=== PATIENT | male | born 1975 | race Caucasian/White ===

== ENCOUNTER 2023-05-09 10:38 | Emergency (ER) | payer OTHER, SELFPAY ==
[2023-05-09] VITALS (8 sets, daily range): BP systolic 137–165; BP diastolic 100–125; PULSE 72–87; RESP 20; TEMP 36.8; O2SAT 96–98; BMI 29.0
--- NOTE | 2023-05-09 10:51 | ECG_ITS ---
APPROVED REPORT Exam: Resting ECG HR:70 bpm ECG Measurements Heart Rate 70 AXES WY 157 P 46 QRSd 90 QRS 89 QT 396 T 31 QTc 417 Conclusion SINUS RHYTHM NORMAL ECG UNCONFIRMED REPORT Electronically signed by : Herbert Still MD 05/10/2023 17:14:11
--- NOTE | 2023-05-09 11:17 | XR_ITS ---
FINAL REPORT CLINICAL HISTORY: dizzines, and soa FINDINGS: SINGLE-VIEW CHEST The heart size is normal. The mediastinum is normal. The lungs are clear. There is no pneumothorax. IMPRESSION: No acute cardiopulmonary process. Reviewed, Interpreted and Dictated by eKvin Root III, MD Transcribed by Mary Turcios Authenticated and [facility]
--- NOTE | 2023-05-09 11:22 | CT_ITS ---
FINAL REPORT TECHNIQUE: Thin section axial CT with IV contrast supplemented with multiplanar reconstruction under CT angiogram protocol. This study was performed with techniques to keep radiation doses as low as reasonably achievable (ALARA). Individualized dose reduction techniques using automated exposure control or adjustment of mA and/or kV according to the patient''s size were employed. NASCET criteria was utilized during interpretation. CLINICAL HISTORY: Dizziness FINDINGS: Aortic arch: Arch shows no significant narrowing. Great vessel origins are widely patent. Right carotid: No significant stenosis is seen of the cervical common or internal carotid artery. Left carotid: No significant stenosis is seen of the cervical common or internal carotid artery. Vertebral: Left vertebral artery is dominant. No significant stenosis is present. 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 IMPRESSION: No significant stenosis. Reviewed, Interpreted and Dictated by Kevin Root III, MD Transcribed by Mary Turcios Authenticated and [facility]
--- NOTE | 2023-05-09 11:22 | CT_ITS ---
FINAL REPORT CLINICAL HISTORY: Dizziness FINDINGS: Axial images of the head were obtained without contrast. Coronal reformatted images were also obtained.This study was performed with techniques to keep radiation doses as low as reasonably achievable (ALARA). Individualized dose reduction techniques using automated exposure control or adjustment of mA and/or kV according to the patient's size were employed. There is no evidence of intracranial hemorrhage or mass. The ventricular size is within normal limits. There is no evidence of shift of the midline structures. No abnormal extra axial fluid collection is identified. No skull abnormality is seen on the bone window images. IMPRESSION: No acute intracranial abnormality. Reviewed, Interpreted and Dictated by Kevin Root III, MD Transcribed by Mary Turcios Authenticated and [facility]
--- NOTE | 2023-05-09 11:22 | CT_ITS ---
FINAL REPORT TECHNIQUE: Thin section axial CT with IV contrast supplemented with multiplanar reconstruction under CT angiogram protocol. 3-D reconstructions were performed. This study was performed with techniques to keep radiation doses as low as reasonably achievable (ALARA). Individualized dose reduction techniques using automated exposure control or adjustment of mA and/or kV according to the patient''s size were employed. CLINICAL HISTORY: Dizziness FINDINGS: The distal vertebral, basilar and distal internal carotid arteries have an unremarkable appearance. No aneurysm is seen. Major intracranial vessels are patent without significant stenosis. IMPRESSION: No significant stenosis identified. Reviewed, Interpreted and Dictated by Kevin Root III, MD Transcribed by Mary Turcios Authenticated and [facility]
--- NOTE | 2023-05-09 11:23 | CT_ITS ---
FINAL REPORT TECHNIQUE: After the administration of IV contrast, axial images through the head/brain was performed by computed tomography. Sagittal and coronal reformatted images were obtained and reviewed. This study was performed with techniques to keep radiation doses as low as reasonably achievable (ALARA). Individualized dose reduction techniques using automated exposure control or adjustment of mA and/or kV according to the patient's size were employed. CLINICAL HISTORY: .dizziness FINDINGS: The major dural venous sinuses are patent. There is no evidence of venous thrombosis. IMPRESSION: There is no evidence of venous thrombosis. Reviewed, Interpreted and Dictated by Kevin Root III, MD Transcribed by Mary Turcios Authenticated and [facility]
[2023-05-09 11:34] LABS: Basophils # 0.1 K/mm3 (0-0.2); Eosinophils # 0.3 K/mm3 (0.0-0.4); Eosinophils % 2.1 % (0.1-12.0); Hematocrit 50.4 % (42.0-52.0); Lymphocytes # 4.6 K/mm3 (0.7-4.5); Lymphocytes % 33.9 % (10-50); Mean Corpuscular HGB Conc 33.7 g/dL (31.8-35.4); Mean Corpuscular Hemoglobin 31.7 pg (27.0-31.2); Mean Corpuscular Volume 94.2 fl (80-94); Mean Platelet Volume 7.8 fl (7.4-10.4); Monocytes # 0.9 K/mm3 (0.1-1.0); Monocytes % 6.6 % (1.7-9.3); Neutrophils # 7.7 K/mm3 (1.8-7.8); Neutrophils % 56.4 % (37.0-80.0); Platelet Count 338 K/mm3 (142-424); Red Blood Count 5.35 M/mm3 (4.60-6.20); Red Cell Distribution Width 14.4 % (11.5-17.5); White Blood Count 13.7 K/mm3 (4.8-10.8)
[2023-05-09 11:35] LABS: Chloride 102 mmol/L (98-107); Potassium 3.4 mmoL/L (3.5-5.1); Sodium 139 mmol/L (136-145)
[2023-05-09 11:37] LABS: Alanine Aminotransferase 22 U/L (12-78); Alkaline Phosphatase 46 U/L (38-126); Anion Gap 9.4 mEq/L (5-15); Aspartate Amino Transferase 26 U/L (17-59); Bilirubin,Total 0.4 mg/dl (0.2-1.3); Blood Urea Nitrogen 21 mg/dl (9-20); Carbon Dioxide 31 mmol/L (22.0-30.0); Creatinine Clearance Estimated 116 mL/min (50-200); Estimated Glomerular Filt Rate 71 ml/min (>60); GFR (African American) 86 ML/MIN (>60)
[2023-05-09 11:38] LABS: Albumin Level 4.3 g/dl (3.5-5.0); Albumin/Globulin Ratio 1.4 (1.1-1.8); Calcium 8.8 mg/dl (8.4-10.2); Glucose 96 mg/dl (74-100); Total Protein,Serum 7.3 g/dl (6.3-8.2)
[2023-05-09 11:54] LABS: Troponin I < 0.01 ng/ml (0.00-0.034)
--- NOTE | 2023-05-09 13:31 | HMH.EDGENADL ---
Discharge Plan Disposition Patient Disposition: Home, Self-Care Condition: Good Prescriptions Prescriptions: No Action No Known Home Medications Referrals Follow up/Referrals: Harman Elias MD [Physician] - See instructions Brian Arevalo MD [Primary Care Provider] - See instructions Tiera Aguilar MD [Staff Physician] - See instructions (Persistent dizziness/vertigo) Activity Restrictions/Add. Instructions Additional Instructions/Restrictions: Please follow-up with your primary care provider. Please return to the emergency department if you develop any new or worsening symptoms or become concerned for your health. Clinical Impressions Clinical Impression: Dizziness Discharge ED Provider: Thomas Reddy I General Adult HPI General Chief complaint: Dizziness Stated complaint: High blood pressure, dr barnes Time Seen by Provider: 05/09/23 10:42 Mode of Arrival: Ambulatory Source of Information: Patient Limitations: No Limitations Description of Symptoms (Recalled from ER Triage Doc. by RN): pt to ed c/o dizziness and hypertension. pt states he has had persistent dizziness x3 weeks. pt states he had ct scans at a hospital in [place] that were negative. pt reports seeing pcp this morning who sent pt to ed to be evaluated for hypertension. pt denies denies headache. History of Present Illness HPI narrative: Patient is a 47-year-old male with history of hypertension presenting to the emergency department with a 3-week history of dizziness. History was conducted with the patient at bedside. Patient states that his initial symptoms started when he was driving, he had worsening lightheadedness, dizziness. Patient states that his symptoms have been persistent since that time. They get worse when he is driving, when he is walking around but not with position changes, when he is lying in bed versus sitting up. He also states that he has had almost a dull feeling in his ears, not as if he has a hard time hearing or any ringing in his ears but that his changes, saying that it feels like his ears are popping whenever he is opening or closing his jaw. He denies any fever, recent trauma, other injuries, cough, congestion, runny nose. Patient was recently evaluated at another hospital, had CT imaging of his head and sinuses that he states was normal. Patient was advised by his primary care provider to come into the emergency department due to elevated blood pressures and for further CT imaging. Denies any changes in his vision. Related Data Home Medications Medication Instructions Recorded Confirmed No Known Home Medications 05/09/23 05/09/23 Allergies Allergy/AdvReac Type Severity Reaction Status Date / Time No Known Allergies Allergy Verified 05/09/23 11:17 [facility] Disclaimer: The information contained in this section may have been updated after the patient was seen, as this information can be updated by other users. Social History Smoking Status: Never smoker alcohol intake: never current occupational status: employed Travel in the last 8 weeks: None ROS Obtained: Yes All systems reviewed & no additional complaints except as documented Physical Exam General General appearance: alert and in no apparent distress Head Head exam: atraumatic and normocephalic ENT ENT exam: Present normal exam Neck Neck exam: Present full ROM Chest Chest inspection: Present normal inspection and symmetric chest wall rise Respiratory Respiratory exam: Present normal lung sounds bilaterally; Absent respiratory distress or accessory muscle use Cardiovascular Cardiovascular exam: Present regular rate and normal rhythm Abdominal Exam Abdominal exam: Present soft; Absent distention, tenderness, guarding or rebound Extremities Exam Extremities exam: Present normal inspection and full ROM Neurological Exam Neurological exam: Present alert and oriented X3 Psychiatric Psychiatric exam: Present normal affec
== END 2023-05-09 14:02 | disposition home or self-care (01) ==
PROVIDERS: Emergency Provider Emergency Medicine; PCP Emergency Medicine
DX: R42 Dizziness and giddiness (principal); I10 Essential (primary) hypertension
CPT/HCPCS: 70450; 70496; 70498; 71045; 80053; 84484; 85025; 93005; 99285; Q9967